=== PATIENT | male | born 1985 | race Caucasian/White ===

== ENCOUNTER 2023-02-11 12:47 | Emergency (ER) | payer SELFPAY ==
[2023-02-11 12:52] VITALS: BP 158/108; PULSE 100; RESP 16; TEMP 36.4; O2SAT 95
[2023-02-11 13:34] VITALS: BP 175/98; PULSE 89; O2SAT 98
[2023-02-11 14:35] LABS: Basophils Absolute Auto 0.1 K/mm3 (0.0-0.1); Basophils Percent Auto 0.5 % (0.2-1.2); Eosinophils Absolute Auto 0.3 K/mm3 (0-0.3); Eosinophils Percent Auto 3.1 % (0-4.4); Hematocrit 46.8 % (42.0-52.0); Hemoglobin 15.6 g/dL (14.0-18.0); Immature Granulocyte Absolute 0.03 K/mm3 (0.00-0.031); Immature Granulocyte Percent A 0.3 % (0-0.5); Lymphocytes Absolute Auto 1.51 K/mm3 (0.9-3.2); Lymphocytes Percent Auto 15.3 % (18.3-44.2); Mean Corpuscular HGB Conc 33.3 g/dl (32-36); Mean Corpuscular Hemoglobin 29.4 pg (26-34); Mean Corpuscular Volume 88.3 fl (80-100); Mean Platelet Volume 11.5 fl (7.4-10.4); Monocytes Percent Auto 10.1 % (2.6-8.5); Neutrophils Percent Auto 70.7 % (45.5-73.1); Platelet Count Result 214 k/mm3 (150-375); Red Cell Distribution Width 12.4 % (11.5-14.5); White Blood Count 9.9 K/mm3 (4.5-10.0)
--- NOTE | 2023-02-11 14:45 | PC.NURSE ---
This RN attempted to get pt VS and refused because This place is a joke .
[2023-02-11 14:58] LABS: Alanine Aminotransferase 45 U/L (6-50); Albumin Level 4.7 g/dL (3.5-5.1); Alkaline Phosphatase 87 U/L (38-126); Anion Gap 9 mmol/L (8-16); Aspartate Amino Transferase 33 U/L (17-59); Bilirubin,Total 0.5 mg/dL (0.2-1.3); Blood Urea Nitrogen 13 mg/dL (9-20); Calcium 9.5 mg/dL (8.4-10.2); Carbon Dioxide 27 mmol/L (22-30); Chloride 105 mmol/L (98-107); Estimated CRCL calculation 145 ml/min; Estimated Glomerular Filt Rate > 60; Glucose 114 mg/dL (65-110); Potassium 3.9 mmol/L (3.4-5.0); Sodium 141 mmol/L (137-145)
[2023-02-11 15:09] LABS: CRP 2.3 mg/dL (<1.0)
--- NOTE | 2023-02-11 15:22 | ED.SKABFB ---
HPI - Skin/Abscess/Foreign Bdy General Chief complaint: Skin/Abscess/Foreign Body Stated complaint: Bilateral leg sores Time Seen by Provider: 02/11/23 13:46 Source: patient and RN notes reviewed Mode of arrival: ambulatory Limitations: no limitations History of Present Illness HPI narrative: This is a 37 year old male with history of hypertension and diabetes who presents for evaluation of leg wounds. Patient states he recently moved here and he has not found a job yet. He has not been able to establish care. He reports he frequently gets wounds to his legs that take a while to heal. He reports he has wound to his left lower leg that had dark blood drainage and yellowish drainage. He also reports leg feels warm. He denies fever, chills, nausea, vomiting, chest pain or shortness of breath. He also reports he is out of his antihypertensives. Related Data Home Medications Medication Instructions Recorded Confirmed amlodipine 10 mg tablet 10 mg PO DAILY 02/11/23 02/11/23 furosemide 20 mg tablet (Lasix) 20 mg PO DAILY 02/11/23 02/11/23 lisinopril 20 mg tablet 20 mg PO DAILY 02/11/23 02/11/23 lisinopril 20 1 tablet PO DAILY 02/11/23 02/11/23 mg-hydrochlorothiazide 25 mg tablet metformin 500 mg tablet 500 mg PO DAILY 02/11/23 02/11/23 metoprolol succinate 50 mg 50 mg PO DAILY 02/11/23 02/11/23 tablet,extended release 24 hr Allergies Allergy/AdvReac Type Severity Reaction Status Date / Time shrimp Allergy Other Verified 02/11/23 13:28 Review of Systems Review of Systems: All systems reviewed & are unremarkable except as noted in HPI and below PMFSH Past Medical History Medical History (Updated 02/11/23 @ 15:33 by Ary Forte MD) Hidradenitis suppurativa Hypertension Social History Social History (Updated 02/11/23 @ 15:33 by Ary Forte MD) Smoking status: Never smoker Exam Const: General: no acute distress and alert Nutritional Appearance: obese Orientation/consciousness: patient oriented x3 HENMT: Head: normal to inspection Face and sinus: normal facial exam Eyes: EOM: EOMs intact bilaterally Resp: Effort & Inspection: normal respiratory effort Auscultation: clear to auscultation bilaterally Cardio: Rate: regular rate Rhythm: regular rhythm Other: no murmur Skin: Other: left lower medial leg with 2 cm wound, no drainage, no fluctuance, no bleeding. There is some surrounding erythema Neuro: General: patient oriented x3, moves all extremities and CN's II-XI intact bilaterally Extrem: General: edema bilateral (lower extremity) Psych: Mental Status: mental status grossly normal Affect: normal affect Attitude: cooperative Course Vital Signs Vital signs: Vital Signs Temperature 97.5 F L 02/11/23 12:52 Pulse Rate 100 02/11/23 12:52 Respiratory Rate 16 02/11/23 12:52 Blood Pressure 158/108 H 02/11/23 12:52 Pulse Oximetry 95 02/11/23 12:52 Oxygen Delivery Room Air 02/11/23 12:52 Temperature 97.5 F L 02/11/23 12:52 Pulse Rate 89 02/11/23 13:34 Respiratory Rate 16 02/11/23 12:52 Blood Pressure 175/98 H 02/11/23 13:34 Pulse Oximetry 98 02/11/23 13:34 Oxygen Delivery Room Air 02/11/23 12:52 MDM - Skin/Abscess/Foreign Bdy MDM Narrative Medical decision making narrative: Labs done to assess for cellulitis or abscess . no significant abnormalities on labs, no sign of end organ damage from hypertension. Patient does not have insurance. He states he can afford medication if I prescribe his home antihypertensives. He will also be started on doxycycline for leg cellulitis. Differential Diagnosis Differential diagnosis: Likely abscess of skin or subcutaneous tissue, cellulitis and other (lymphedema, hypertensive urgency) Lab Data 02/11/23 14:30 02/11/23 14:30 Labs: Lab Results 02/11/23 Range/Units 14:30 WBC 9.9 (4.5-10.0) K/mm3 RBC 5.30 (4.6-6.20) M/mm3 Hgb 15.6 (14.0-18.0) g
== END 2023-02-11 15:37 | disposition home or self-care (01) ==
PROVIDERS: Emergency Provider General Practice
DX: L03.116 Cellulitis of left lower limb (principal); E11.9 Type 2 diabetes mellitus without complications; I10 Essential (primary) hypertension; Z79.84 Long term (current) use of oral hypoglycemic drugs
CPT/HCPCS: 36415; 80053; 85025; 86140; 99283